=== PATIENT | male | born 1990 | race Caucasian/White ===

== ENCOUNTER 2018-11-21 11:19 | Emergency (ER) | payer SELFPAY ==
[~2018-11-21] VITALS: Ht 188 cm; Wt 70.5 kg
[~2018-11-21 11:19] MED LIST: AMOXICILLIN875 MG PO; NO HOME MEDICATIONS; PEPCID 20MG TAB20 MG PO
[2018-11-21 11:27] VITALS: TEMP 98.5
[2018-11-21 12:44] LABS: COLLECTION METHOD CLEAN CATCH
[2018-11-21 12:52] LABS: PH 8 (5-8); SQUAMOUS EPITHELIAL None Seen /hpf; URINE APPEARANCE Clear; URINE BACTERIA None Seen /hpf; URINE BILIRUBIN Negative (NEGATIVE); URINE BLOOD Negative (NEGATIVE); URINE COLOR Yellow; URINE GLUCOSE Negative (NEGATIVE); URINE KETONE Negative (NEGATIVE); URINE LEUKOCYTE ESTERASE Negative (NEGATIVE); URINE NITRATE Negative (NEGATIVE); URINE PROTEIN(semi-quant) Negative (NEGATIVE); URINE RBC None Seen /hpf; URINE UROBILINOGEN Negative (NEGATIVE)
[2018-11-21 13:32] LABS: HIV 1/2 Antibodies Non-Reactive; HIV-1p24 Antigen Non-Reactive
[2018-11-21 15:08] VITALS: BP 110/87; PULSE 65
[2018-11-23 14:40] LABS: RPR (VDRL) XXX
== END 2018-11-21 15:08 | disposition home or self-care (01) ==
LOC: COL.ER 11:19
PROVIDERS: Emergency Medicine; Nurse Practitioner Primary Care
DX: Z72.51 High risk heterosexual behavior (principal)